=== PATIENT | female | born 2000 | race Caucasian/White ===

== ENCOUNTER 2019-07-02 21:04 | Outpatient (CLI) | payer BC ==
[2019-07-02 22:41] LABS: BASOPHILS # (AUTO) 0.1 10^3/uL (0.0-0.1); BASOPHILS % (AUTO) 0.6 %; EOSINOPHILS # (AUTO) 0.1 10^3/uL (0.0-0.7); EOSINOPHILS % (AUTO) 0.6 %; HGB - HEMOGLOBIN 11.7 g/dL (12.0-16.0); LYMPHOCYTES # (AUTO) 1.5 10^3/uL (1.5-3.5); LYMPHOCYTES % (AUTO) 15.4 %; MEAN CORPUSCULAR HEMOGLOBIN 27.1 pg (27.0-31.0); MEAN CORPUSCULAR HGB CONC 31.6 g/dL (32.0-36.0); MEAN CORPUSCULAR VOLUME 85.6 fL (81.0-99.0); MEAN PLATELET VOLUME 11.5 fL (7.9-10.8); MONOCYTES # (AUTO) 0.6 10^3/uL (0.0-1.0); MONOCYTES % (AUTO) 5.8 %; NEUTROPHILS # (AUTO) 7.6 10^3/uL (1.5-6.6); NEUTROPHILS % (AUTO) 77.4 %; PLT - PLATELET COUNT 264 10^3/uL (130-450); RED BLOOD COUNT 4.32 10^6/uL (4.20-5.40); RED CELL DISTRIBUTION WIDTH 14.4 % (12.0-15.0); WHITE BLOOD COUNT 9.8 x10^3/uL (4.8-10.8)
[2019-07-02 22:56] LABS: BILIRUBIN,DIRECT 2.9 mg/dL (0.1-0.5); BILIRUBIN,TOTAL 4.7 mg/dL (0.2-1.0); TOTAL PROTEIN 7.9 g/dL (6.7-8.2)
[2019-07-02 23:19] LABS: AMYLASE 103 U/L (28-100); LIPASE 59 U/L (22-51)
--- NOTE | 2019-07-03 10:03 | Ultrasound Report ---
Reason: INCREASED BILI IN URINE Procedure Date: 07/02/2019 Accession Number: [id number] / [id number] Procedure: US - Abdomen Complete CPT Code: FULL RESULT: EXAM: ABDOMEN ULTRASOUND. EXAM DATE: 07/02/2019 09:40 PM. CLINICAL HISTORY: Increased bilirubin in urine. Further assessment and characterization. COMPARISON: None. TECHNIQUE: Real-time scanning was performed with static images obtained. FINDINGS: Liver: Normal in size and echotexture. 15.5 cm. Main portal vein flow: Hepatopetal. Gallbladder: Partly contracted. Multiple gallstones are noted. There is no pathologic wall thickening or pericholecystic fluid seen at this time. Biliary System: Mild central intrahepatic biliary ductal dilation is present. CBD measures 7.6 mm in diameter. Distal CBD is obscured by bowel gas. Pancreas: Visualized portion is unremarkable. Kidneys: Right: 10.2 cm longitudinally. Normal. No contour-deforming mass, stones, or hydronephrosis. Left: 10.5 cm longitudinally. Normal. No contour-deforming mass, stones, or hydronephrosis. Spleen: 9.4 cm. Normal in size and echotexture. Aorta and Inferior Vena Cava: Unremarkable. Other: None. IMPRESSION: 1. There is mild intrahepatic biliary dilation. Mild dilation of the CBD. Distal CBD is obscured by bowel gas. Distal CBD obstruction by a gallstone difficult to exclude with certainty. This could be further assessed with MRCP. 2. There are numerous stones within the gallbladder. Gallbladder appears partly contracted. No findings to indicate acute cholecystitis on this exam. Critical Result: Findings were discussed by telephone with Dr. Koehler at 2342 hours on 07/02/2019. [facility] The above call report findings were discussed with Dr. Koehler by Dr. Bhanu Gaona at 11:42 PM on 07/02/2019.
== END 2019-07-02 21:05 | disposition home or self-care (01) ==
LOC: DI 21:04
PROVIDERS: ATTEND Registered Nurse
DX: K80.20 Calculus of gallbladder without cholecystitis without obstruction (principal); K83.8 Other specified diseases of biliary tract
CPT/HCPCS: 36415; 76700; 80076; 82150; 83690; 85025

== ENCOUNTER 2019-07-13 11:54 | Outpatient (CLI) | payer BC ==
[2019-07-13 17:36] LABS: BASOPHILS # (AUTO) 0.1 10^3/uL (0.0-0.1); BASOPHILS % (AUTO) 0.6 %; EOSINOPHILS # (AUTO) 0.2 10^3/uL (0.0-0.7); EOSINOPHILS % (AUTO) 2.6 %; HGB - HEMOGLOBIN 11.4 g/dL (12.0-16.0); LYMPHOCYTES # (AUTO) 3.3 10^3/uL (1.5-3.5); LYMPHOCYTES % (AUTO) 42.7 %; MEAN CORPUSCULAR HEMOGLOBIN 27.7 pg (27.0-31.0); MEAN CORPUSCULAR HGB CONC 31.1 g/dL (32.0-36.0); MEAN CORPUSCULAR VOLUME 89.3 fL (81.0-99.0); MEAN PLATELET VOLUME 13.6 fL (7.9-10.8); MONOCYTES # (AUTO) 0.4 10^3/uL (0.0-1.0); MONOCYTES % (AUTO) 4.7 %; NEUTROPHILS # (AUTO) 3.8 10^3/uL (1.5-6.6); NEUTROPHILS % (AUTO) 49.3 %; PLT - PLATELET COUNT 255 10^3/uL (130-450); RED BLOOD COUNT 4.11 10^6/uL (4.20-5.40); RED CELL DISTRIBUTION WIDTH 14.9 % (12.0-15.0); WHITE BLOOD COUNT 7.7 x10^3/uL (4.8-10.8)
[2019-07-13 18:02] LABS: ALBUMIN 3.8 g/dL (3.2-5.5); BILIRUBIN,DIRECT 0.6 mg/dL (0.1-0.5); BILIRUBIN,TOTAL 1.4 mg/dL (0.2-1.0); TOTAL PROTEIN 6.8 g/dL (6.7-8.2)
[2019-07-13 20:06] LABS: PLATELET ESTIMATE, MANUAL NORMAL (130-450,000) (NORMAL); PLATELET MORPHOLOGY 1+ GIANT PLATELETS (NORMAL)
== END 2019-07-13 11:55 | disposition home or self-care (01) ==
LOC: LAB.S 11:54
PROVIDERS: ATTEND Pediatrics
DX: K80.50 Calculus of bile duct without cholangitis or cholecystitis without obstruction (principal); D45 Polycythemia vera
CPT/HCPCS: 36415; 80076; 85025

== ENCOUNTER 2020-05-04 11:31 | Outpatient (CLI) | payer BC | END 2020-05-04 11:32 | disposition critical access hospital (66) | LOC: EMS 11:31 | PROVIDERS: ATTEND Surgery | DX: M79.605 Pain in left leg (principal); M79.89 Other specified soft tissue disorders; R11.0 Nausea; R07.89 Other chest pain | CPT/HCPCS: A0425; A0429 ==

== ENCOUNTER 2020-05-04 12:06 | Emergency (ER) | payer BC ==
[2020-05-04] MEDS ORDERED: ONDANSETRON 4 MG/2 ML VIAL IVP STA (12:14)
[2020-05-04] MEDS ORDERED: MORPHINE 2 MG/ML CARPUJECT IVP STA (12:14)
--- NOTE | 2020-05-04 12:23 | ED Physician Documentation ---
History of Present Illness - Stated complaint Stated Complaint: LEG PAIN - Chief complaint Chief Complaint: General - History obtained from History obtained from: Patient (19-year-old woman who is on control has had 3 days of progressive left leg pain with significant swelling over the last 24 hours and especially this morning. She also has mild chest pain that started just prior to arrival. She was seen at a walk-in clinic and referred here for likely DVT.) - History of Present Illness Timing: Other (The only family history of DVT is in her mother who had a port and had a port related DVT related to chemotherapy and cancer) Review of Systems Ten Systems: 10 systems reviewed and negative Constitutional: denies: Fever, Chills Cardiac: reports: Chest pain / pressure, Pedal edema, Calf pain. denies: Palpitations Respiratory: denies: Dyspnea, Cough PD PAST MEDICAL HISTORY - Past Medical History Past Medical History: Yes Psych: Depression, Anxiety - Past Surgical History Past Surgical History: Yes General: Cholecystectomy - Present Medications Home Medications: Ambulatory Orders Medication Instructions Recorded Confirmed Sertraline HCl [Zoloft] 100 mg PO DAILY 05/04/20 05/04/20 - Allergies Allergies/Adverse Reactions: Allergies Allergy/AdvReac Type Severity Reaction Status Date / Time No Known Drug Allergies Allergy Verified 05/04/20 12:14 - Social History Does the pt smoke?: No - Family History Family history: reports: Non contributory PD ED PE NORMAL - Vitals Vital signs reviewed: Yes - General General: Alert and oriented X 3, No acute distress - HEENT HEENT: PERRL, EOMI - Neck Neck: Supple, no meningeal sign, No bony TTP - Cardiac Cardiac: RRR, No murmur - Respiratory Respiratory: No respiratory distress, Clear bilaterally - Abdomen Abdomen: Normal bowel sounds, Soft, Non tender - Back Back: No CVA TTP, No spinal TTP - Derm Derm: Normal color, Warm and dry - Extremities Extremities: Other (She has a very impressively swollen and bluish discolored left leg with normal pedal pulses and slightly delayed cap refill (6sec) consistent with phlegmasia cerulea dolens) - Neuro Neuro: Alert and oriented X 3, Normal speech - Psych Psych: Normal mood, Normal affect Results - Vitals Vitals: Vital Signs - 24 hr 06/17/20 06/17/20 06/17/20 12:11 12:44 13:32 Temperature 37.4 C Heart Rate 75 71 85 Respiratory 20 18 16 Rate Blood Pressure 134/92 H 133/79 H 127/88 H O2 Saturation 97 98 99 05/04/20 05/04/20 05/04/20 14:28 14:30 15:07 Temperature Heart Rate 81 79 88 Respiratory 24 12 16 Rate Blood Pressure 122/86 H 122/86 H 126/67 O2 Saturation 98 95 96 05/04/20 05/04/20 05/04/20 15:33 16:46 17:37 Temperature Heart Rate 86 72 75 Respiratory 15 9 L 24 Rate Blood Pressure 113/69 120/74 115/81 H O2 Saturation 95 95 97 05/04/20 05/04/20 18:19 18:34 Temperature Heart Rate 83 90 Respiratory 10 L 23 Rate Blood Pressure 119/78 116/70 O2 Saturation 97 97 Oxygen O2 Source Room air - EKG (time done) 1222 Rate: Rate (enter#) (73) Rhythm: NSR Midkiff: Normal Intervals: Normal VA QRS: Normal Ischemia: Normal ST segments Computer interpretation: Agree with computer - Labs Labs: Laboratory Tests 05/04/20 05/04/20 05/04/20 12:27 12:27 12:27 WBC 13.5 H RBC 4.42 Hgb 12.7 Hct 38.6 MCV 87.3 MCH 28.7 MCHC 32.9 RDW 13.3 Plt Count 264 MPV 10.7 Neut # (Auto) 10.7 H Lymph # (Auto) 2.0 Braxton # (Auto) 0.7 Eos # (Auto) 0.0 Baso # (Auto) 0.1 Absolute Nucleated RBC 0.00 Nucleated RBC % 0.0 PT 14.5 H INR 1.3 H APTT 27.2 Anti-Xa Level Sodium 134 L Potassium 4.0 Chloride 101 Carbon Dioxide 24 Anion Gap 9.0 BUN 17 Creatinine 0.7 Estimated GFR (MDRD) 106 Glucose 107 H Calcium 9.4 Total Bilirubin 0.7 AST 16 ALT 17 Alkaline Phosphatase 100 Total Protein 8.3 H Albumin 4.3 Globulin 4.0 Albumin/Globulin Ratio 1.1 Lipase 17 L Ur Specific [place] Urine HCG, Qual 05/04/20 05/04/20 13:30 17:56 WBC RBC Hgb Hct MCV MCH MCHC RDW Plt Count MPV Neut # (Auto) Lymph # (Auto) Braxton # (Auto) Eos # (Auto) Baso # (Auto) Absolute Nucleated RBC Nucleated RBC % PT INR APTT Anti-Xa Level 1.1 H* Sodium Potassium Chloride Carbon Dioxide Anion Gap BUN Creatinine Estimated GFR (MDRD) Glucose Calcium Total Bilirubin AST ALT Alkaline Phosphatase Total Protein Albumin Globulin Albumin/Globulin Ratio Lipase Ur Specific [place] 1.020 Urine HCG, Qual NEGATIVE - Rads (name of study) BLE DVT sono Radiology: EMP read contemporaneously (Extensive occlusive thrombus throughout the left leg in every vein) CT Chest Angio Radiology: EMP read contemporaneously (Small bilateral pulmonary emboli) PD MEDICAL DECISION MAKING - ED course ED course: 19-year-old woman presents with a pretty clear-cut case of phlegmasia cerulea dolens. She was anticoagulated prior to studies given the very high pretest probability, and testing did confirm extensive DVT in the left leg as well as small PEs. She was on high-dose heparin drip. There is some delay getting a hold of the vascular surgery service at [place] and I spoke with ADWOA Polo who deferred the case to medicine feeling that vascular would likely not get involved, it would just be medicine with interventional radiology consultation. Subsequently accepted by Dr. Evangelista in [place] to the hospitalist service at 3:12 PM. Cobras were completed. She is stable for ground transport to a higher level of care for potential interventional radiology intervention. There was a significant delay in transport because of high bed census in [place] and it took some time for them to confirm a bed. Anti-Xa level done around 6 PM was 1.1. Notified the nurse to stop the heparin for 1 hour and then when we restarted to restart at 3 units/kg/h less than it was running at. She will have to pass this along to the paramedics. 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
[2020-05-04 12:40] LABS: BASOPHILS # (AUTO) 0.1 10^3/uL (0.0-0.1); BASOPHILS % (AUTO) 0.5 %; EOSINOPHILS % (AUTO) 0.2 %; HGB - HEMOGLOBIN 12.7 g/dL (12.0-16.0); LYMPHOCYTES % (AUTO) 14.6 %; MEAN CORPUSCULAR HEMOGLOBIN 28.7 pg (27.0-31.0); MEAN CORPUSCULAR HGB CONC 32.9 g/dL (32.0-36.0); MEAN CORPUSCULAR VOLUME 87.3 fL (81.0-99.0); MEAN PLATELET VOLUME 10.7 fL (7.9-10.8); MONOCYTES # (AUTO) 0.7 10^3/uL (0.0-1.0); MONOCYTES % (AUTO) 5.3 %; NEUTROPHILS # (AUTO) 10.7 10^3/uL (1.5-6.6); NEUTROPHILS % (AUTO) 79.1 %; PLT - PLATELET COUNT 264 10^3/uL (130-450); RED BLOOD COUNT 4.42 10^6/uL (4.20-5.40); RED CELL DISTRIBUTION WIDTH 13.3 % (12.0-15.0); WHITE BLOOD COUNT 13.5 x10^3/uL (4.8-10.8)
[2020-05-04 12:46] LABS: INR 1.3 (0.8-1.2); PT - PROTHROMBIN TIME 14.5 secs (9.9-12.6)
[2020-05-04 12:51] LABS: ALBUMIN 4.3 g/dL (3.2-5.5); ALBUMIN/GLOBULIN RATIO 1.1 (1.0-2.2); BILIRUBIN,TOTAL 0.7 mg/dL (0.2-1.0); CALCIUM 9.4 mg/dL (8.5-10.3); CREATININE 0.7 mg/dL (0.4-1.0); TOTAL PROTEIN 8.3 g/dL (6.7-8.2)
[2020-05-04 12:53] LABS: PARTIAL THROMBOPLASTIN TIME 27.2 secs (24.9-33.3)
[2020-05-04] MEDS ORDERED: HEPARIN 25000UNITS/500ML (D5W) 25,000 UNIT/500 ML BAG IV SCH (13:00)
[2020-05-04] MEDS ORDERED: IOVERSOL 320 100 ML VIAL IVP ONE ×2 (13:12→16:23)
[2020-05-04] MEDS ORDERED: HYDROmorphone 1 MG/ML CARPUJECT IVP STA ×2 (13:38→16:37)
--- NOTE | 2020-05-04 13:45 | Ultrasound Report ---
PROCEDURE: Duplex Ext Veins Bilateral INDICATIONS: Left lower extremity pain and swelling. TECHNIQUE: Real-time imaging, as well as color and pulse Doppler interrogation, were performed of the deep veins of both legs from the inguinal ligament to the popliteal fossa. COMPARISON: None FINDINGS: The deep veins of the right lower extremity are normally compressible, and free of intralu sheila thrombus. Color and pulse Doppler demonstrate normal phasic intravascular flow in the right lo wer extremity. There is normal augmentation response to distal compression maneuver in the right low er extremity. Occlusive thrombus is identified in the visualized left common femoral vein, left superficial femoral vein, left popliteal vein and the left posterior tibial veins. Occlusive thrombus is noted in the gr eater saphenous vein. IMPRESSION: 1. Abnormal study demonstrating extensive occlusive thrombus involving the deep veins of the left low er extremity and the superficial venous system of the left lower extremity. 2. No evidence of deep vein thrombosis involving the right lower extremity. Reviewed by: Victoria Miles MD, PhD on 05/04/2020 1:44 PM PDT Approved by: Victoria Miles MD, PhD on 05/04/2020 1:44 PM PDT Station ID: [id number]
[2020-05-04 13:58] LABS: HCG UR QUAL NEGATIVE
--- NOTE | 2020-05-04 14:30 | CT Report ---
PROCEDURE: ANGIO CHEST W/WO INDICATIONS: Chest pain, PE protocol CONTRAST: IV CONTRAST: Optiray 320 ml: 60 PO CONTRAST: *NO PO CONTRAST TECHNIQUE: After the administration of intravenous contrast, 2 mm thick sections acquired from the pulmonary api arleen to the posterior costophrenic angles. 3-dimensional maximum intensity projection (MIP) coronal a nd sagittal reformats were then acquired through the thorax. For radiation dose reduction, the follow ing was used: automated exposure control, adjustment of mA and/or kV according to patient size. COMPARISON: None FINDINGS: Image quality: Excellent. Pulmonary arteries: Filling defects noted in several right lower lobe segmental and subsegmental pulm onary arteries, right middle lobe subsegmental pulmonary arteries, left upper lobe segmental and subs egmental pulmonary arteries and left lower lobe subsegmental pulmonary arteries. Lungs and pleura: Lungs are clear. No pleural effusions or pneumothorax. Central and peripheral ai rways are patent. Mediastinum: Heart size is normal, without pericardial effusion. No mediastinal or hilar adenopathy . Thoracic aorta is normal in caliber and enhancement. Esophagus is normal in caliber, without hiat al hernia. Bones and chest wall: No suspicious bony lesions. Ribs and thoracic spine appear intact throughout. The thyroid is normal. No axillary or supraclavicular adenopathy. Abdomen: Gallbladder surgically absent. Visualized upper abdominal solid organs appear normal in the early arterial phase of enhancement. IMPRESSION: 1. Abnormal study demonstrating small bilateral pulmonary emboli. 2. Findings telephoned to Dr. Schmitz on 05/04/2020 at 1425 hours. Reviewed by: Victoria Miles MD, PhD on 05/04/2020 2:28 PM PDT Approved by: Victoria Miles MD, PhD on 05/04/2020 2:28 PM PDT Station ID: [id number]
[2020-05-04 18:35] VITALS: BP 116/70
[2020-05-07 14:00] LABS: PROTEIN C ACTIVITY 123 % normal (70-180)
== END 2020-05-04 19:06 | disposition short-term general hospital (02) ==
LOC: EDUNIT# → ED 12:06
DX: I82.412 Acute embolism and thrombosis of left femoral vein (principal); I82.432 Acute embolism and thrombosis of left popliteal vein; I82.442 Acute embolism and thrombosis of left tibial vein; I82.492 Acute embolism and thrombosis of other specified deep vein of left lower extremity; I26.94 Multiple subsegmental thrombotic pulmonary emboli without acute cor pulmonale
CPT/HCPCS: 36415; 71275; 80053; 81025; 81241; 83690; 85025; 85303; 85520; 85610; 85730; 93005; 93970; 96365; 96366; 96375; 96376; 99283; 99285; J1170; Q9967

== ENCOUNTER 2020-05-04 19:07 | Outpatient (CLI) | payer BC | END 2020-05-04 19:08 | disposition short-term general hospital (02) | LOC: EMS 19:07 | PROVIDERS: ATTEND Surgery | DX: I80.202 Phlebitis and thrombophlebitis of unspecified deep vessels of left lower extremity (principal); I26.99 Other pulmonary embolism without acute cor pulmonale | CPT/HCPCS: A0425; A0426 ==